=== PATIENT | female | born 1940 | race African-American/Black ===

== ENCOUNTER → 2016-06-12 | Outpatient (CLI) | payer MEDICARE, OTHER ==
[2016-05-07 12:46] VITALS: BP 127/64
[~2016-06-12] MED LIST: ASPI-482 PO; ESTR2TAB PO; EZET10TA3 PO; FERR-26 PO; LEVO112T4 PO; LOSA100T6 PO; MULT-658 PO; NAPR220T70 PO; OXYC-323 PO; OXYC1TAB7 PO; POTA10CA PO; SIMV40TA3 PO; TRIA1TAB5 PO; VERA240C2 PO; WARF2TAB7 PO
[2016-06-12 11:23] LABS: INR 1.7 (0.8-1.1); PROTHROMBIN TIME PATIENT 18.8 SEC (11.7-14.0)
== END | disposition home or self-care (01) ==
LOC: LAB 10:10
PROVIDERS: ATTEND Orthopaedic Surgery Sports Medicine
DX: Z79.01 Long term (current) use of anticoagulants (principal)
CPT/HCPCS: 36415; 85610

== ENCOUNTER → 2016-09-13 | Day surgery (SDC) | payer MEDICARE, OTHER ==
[~2016-09-13] MED LIST changes: +DILT240T3 PO; +FENTANYL PF 100 MCG/2 ML VIAL. IV PRN; +HYDROMORPHONE 2 MG/ML VIAL. IV PRN; +IV RINGERS,LACTATED 1000ML 1,000 ML IV SCH; +LIDOCAINE 1% 1 ML SYRINGE. ID PRN; +LIDOCAINE 2% PF Vial for OR 5 ML VIAL. ONE; +MORPHINE SULFATE 2 MG/ML DISP.SYRIN. IV PRN; +ONDANSETRON PF 4 MG/2 ML VIAL. IV PRN; +PROCHLORPERAZINE 10 MG/2 ML VIAL. IV PRN; +PROPOFOL 20 ML IV ONE
[2016-09-13 07:54] VITALS: BP 114/47
== END | disposition home or self-care (01) ==
LOC: ENDOS 06:02
PROVIDERS: ATTEND Internal Medicine Gastroenterology
DX: K64.0 First degree hemorrhoids (principal); K57.30 Diverticulosis of large intestine without perforation or abscess without bleeding; E78.00 Pure hypercholesterolemia, unspecified; I10 Essential (primary) hypertension; M19.90 Unspecified osteoarthritis, unspecified site; E03.9 Hypothyroidism, unspecified; Z90.710 Acquired absence of both cervix and uterus; Z90.49 Acquired absence of other specified parts of digestive tract
CPT/HCPCS: 45378; G0500; J2704

== ENCOUNTER → 2016-12-04 | Outpatient (CLI) | payer MEDICARE ==
[2016-09-13 07:54] VITALS: BP 114/47
[~2016-12-04] MED LIST changes: +EZET10TA18 PO; -EZET10TA3 PO; -FENTANYL PF 100 MCG/2 ML VIAL. IV PRN; -HYDROMORPHONE 2 MG/ML VIAL. IV PRN; -IV RINGERS,LACTATED 1000ML 1,000 ML IV SCH; -LIDOCAINE 1% 1 ML SYRINGE. ID PRN; -LIDOCAINE 2% PF Vial for OR 5 ML VIAL. ONE; -MORPHINE SULFATE 2 MG/ML DISP.SYRIN. IV PRN; -ONDANSETRON PF 4 MG/2 ML VIAL. IV PRN; -POTA10CA PO; +POTASSIUM CHLO10 MEQ PO; -PROCHLORPERAZINE 10 MG/2 ML VIAL. IV PRN; -PROPOFOL 20 ML IV ONE
--- NOTE | 2016-12-04 13:16 | RAD ---
Indication: Carotid bruit. Grayscale, color-flow and duplex Doppler evaluation of bilateral carotid systems was performed. There is mild plaque in the carotid bulbs and bifurcations extending into the proximal internal and external carotid arteries. Mild velocity elevation in the left proximal internal carotid artery is noted at 147 cm/s. Velocities on the right are unremarkable. Both vertebral arteries show antegrade flow. Peak velocity within the common carotid arteries is 107 cm/s on the right and 108 cm/s on the left. Peak ICA velocity on the right is 109 cm/s and on the left 147 cm/s. ICA to CCA ratio on the right is 1.0 and left is 1.4. Impression: Mild bilateral carotid plaque. No hemodynamically significant stenosis is detected.
== END | disposition home or self-care (01) ==
LOC: US 15:56
PROVIDERS: ATTEND Family Medicine
DX: I65.23 Occlusion and stenosis of bilateral carotid arteries (principal)
CPT/HCPCS: 93880

== ENCOUNTER → 2017-09-24 | Outpatient (CLI) | payer MEDICARE ==
[2017-09-24 11:51] LABS: ADD MAN DIFF? NO
[2017-09-24 11:52] LABS: BASO % 1 % (0-3); EOS # 0.3 x10^3/uL (0.0-0.7); EOS % 4 % (0-3); HEMATOCRIT 38.2 % (36.0-47.0); HEMOGLOBIN 12.6 g/dL (12.0-15.5); LYMPH # 1.9 x10^3/uL (1.0-4.8); LYMPH % 24 % (24-48); MEAN CORPUSCULAR HEMOGLOBIN 29 pg (25-35); MEAN CORPUSCULAR HGB CONC 33 g/dL (31-37); MEAN CORPUSCULAR VOLUME 88 fL (79-100); MONO # 0.6 x10^3/uL (0.0-1.1); MONO % 8 % (0-9); NEUT % 64 % (31-73); PLATELET COUNT 228 x10^3/uL (140-400); RED BLOOD COUNT 4.34 x10^6/uL (3.50-5.40); RED CELL DISTRIBUTION WIDTH 13.4 % (11.5-14.5); WHITE BLOOD COUNT 7.9 x10^3/uL (4.0-11.0)
[2017-09-24 12:06] LABS: ALBUMIN 3.8 g/dL (3.4-5.0); ANION GAP 8 (6-14); BLOOD UREA NITROGEN 22 mg/dL (7-20); CALCIUM 9.1 mg/dL (8.5-10.1); CARBON DIOXIDE 30 mmol/L (21-32); CHLORIDE 103 mmol/L (98-107); CREATININE 1.1 mg/dL (0.6-1.0); GFR 58.4; GLUCOSE 105 mg/dL (70-99); POTASSIUM 4.4 mmol/L (3.5-5.1); SODIUM 141 mmol/L (136-145)
== END | disposition home or self-care (01) ==
LOC: SURGPAT 10:47
DX: Z01.818 Encounter for other preprocedural examination (principal); K64.8 Other hemorrhoids
CPT/HCPCS: 36415; 80048; 82040; 85025

== ENCOUNTER 2017-09-30 08:12 | Day surgery (SDC) | payer MEDICARE ==
[~2017-09-30 08:12] MED LIST changes: -ASPI-482 PO; -DILT240T3 PO; -ESTR2TAB PO; -EZET10TA18 PO; -FERR-26 PO; -LEVO112T4 PO; +LIDOCAINE 1% PF 2 ML VIAL. ID; -LOSA100T6 PO; +MORPHINE SULFATE 4 MG/ML DISP.SYRIN. IV; -MULT-658 PO; -NAPR220T70 PO; +ONDANSETRON PF 4 MG/2 ML VIAL. IV; -OXYC-323 PO; -OXYC1TAB7 PO; -POTASSIUM CHLO10 MEQ PO; -SIMV40TA3 PO; -TRIA1TAB5 PO; -VERA240C2 PO; -WARF2TAB7 PO; +ceFAZolin 2GM PREMIX 2 GM/50 ML BAG IV; +fentaNYL PF VIAL 100 MCG/2 ML VIAL IV
[2017-09-30] MEDS ORDERED: BUPIVACAINE-EPI 0.25%-1:200000 50 ML VIAL. (09:03)
[2017-09-30] MEDS ORDERED: GELATIN SPONGE SIZE 100. (09:03)
[2017-09-30] MEDS: IV RINGERS,LACTATED 1000ML 1,000 ML IV (09:10)
[2017-09-30] MEDS ORDERED: PROPOFOL 20 ML IV (10:00)
[2017-09-30] MEDS ORDERED: LIDOCAINE 2% PF Vial for OR 5 ML VIAL. (10:00)
[2017-09-30] MEDS ORDERED: fentaNYL PF VIAL 100 MCG/2 ML VIAL ×2 (10:01→11:02)
[2017-09-30] MEDS ORDERED: ROCURONIUM 50 MG/5 ML VIAL. (10:01)
[2017-09-30] MEDS ORDERED: DEXAMETHASONE SOD PHOS 20 MG/5 ML VIAL. (10:40)
[2017-09-30] MEDS ORDERED: ONDANSETRON PF 4 MG/2 ML VIAL. (10:40)
[2017-09-30] MEDS ORDERED: GLYCOPYRROLATE 1 MG/5 ML VIAL. (10:41)
[2017-09-30] MEDS ORDERED: NEOSTIGMINE METHYLSULFATE 5 MG/5 ML SYRINGE. (10:41)
[2017-09-30] MEDS ORDERED: SEVOFLURANE 16 TO 30 MINUTES. IH (10:54)
[2017-09-30] MEDS ORDERED: PROCHLORPERAZINE 10 MG/2 ML VIAL. (11:02)
[2017-09-30] MEDS: PROCHLORPERAZINE 10 MG/2 ML VIAL. IV (11:10)
== END 2017-09-30 12:32 | disposition home or self-care (01) ==
LOC: SURG 08:12
DX: K62.3 Rectal prolapse (principal); I10 Essential (primary) hypertension; E78.5 Hyperlipidemia, unspecified; E03.9 Hypothyroidism, unspecified; M19.90 Unspecified osteoarthritis, unspecified site; Z90.710 Acquired absence of both cervix and uterus; Z90.49 Acquired absence of other specified parts of digestive tract; Z98.890 Other specified postprocedural states; Z87.891 Personal history of nicotine dependence; Z82.49 Family history of ischemic heart disease and other diseases of the circulatory system; Z80.42 Family history of malignant neoplasm of prostate; Z79.82 Long term (current) use of aspirin; Z79.899 Other long term (current) drug therapy
CPT/HCPCS: 45300; A7015; J0690; J0780; J1100; J2405; J2704; J2710; J3010; J3490

== ENCOUNTER → 2018-08-25 | Outpatient (CLI) | payer MEDICARE ==
[2017-09-30 12:10] VITALS: BP 122/58
[~2018-08-25] MED LIST changes: +ACET500T33 PO; +ASPI-482 PO; +ASPI325T11 PO; +ATOR40TA59 PO; +CHOL4POW2 PO; +CLOP75TA PO; +CYAN10005 PO; +DILT240T3 PO; +ESTR2TAB PO; +EZET10TA18 PO; +FERR325T14 PO; +LEVO112T4 PO; +LEVO75TA5 PO; +LEVO88TA4 PO; -LIDOCAINE 1% PF 2 ML VIAL. ID; +LOSA100T14 PO; +METO25TA4 PO; -MORPHINE SULFATE 4 MG/ML DISP.SYRIN. IV; +MULT-658 PO; +NAPR220T70 PO; -ONDANSETRON PF 4 MG/2 ML VIAL. IV; +OXYC1TAB15 PO; +OXYC1TAB7 PO; +POTA10TA12 PO; +PSYL0.5215 PO; +SIMV40TA3 PO; +TRIA1TAB5 PO; +VERA240C2 PO; +WARF2TAB96 PO; -ceFAZolin 2GM PREMIX 2 GM/50 ML BAG IV; -fentaNYL PF VIAL 100 MCG/2 ML VIAL IV
[2018-08-25 11:56] LABS: BASO % 1 % (0-3); EOS # 0.1 x10^3/uL (0.0-0.7); EOS % 2 % (0-3); HEMATOCRIT 37.7 % (36.0-47.0); HEMOGLOBIN 11.9 g/dL (12.0-15.5); LYMPH % 30 % (24-48); MEAN CORPUSCULAR HEMOGLOBIN 28 pg (25-35); MEAN CORPUSCULAR HGB CONC 32 g/dL (31-37); MEAN CORPUSCULAR VOLUME 89 fL (79-100); MONO # 0.6 x10^3/uL (0.0-1.1); MONO % 9 % (0-9); NEUT # 3.9 x10^3uL (1.8-7.7); NEUT % 59 % (31-73); PLATELET COUNT 210 x10^3/uL (140-400); RED BLOOD COUNT 4.21 x10^6/uL (3.50-5.40); RED CELL DISTRIBUTION WIDTH 14.3 % (11.5-14.5); WHITE BLOOD COUNT 6.6 x10^3/uL (4.0-11.0)
[2018-08-25 12:10] LABS: PROTHROMBIN TIME PATIENT 12.5 SEC (11.7-14.0)
[2018-08-25 12:32] LABS: ALBUMIN 3.5 g/dL (3.4-5.0); ALBUMIN/GLOBULIN RATIO 0.8 (1.0-1.7); CALCIUM 9.2 mg/dL (8.5-10.1); CREATININE 1.1 mg/dL (0.6-1.0); GFR 58.3; POTASSIUM 3.9 mmol/L (3.5-5.1); TOTAL BILIRUBIN 0.5 mg/dL (0.2-1.0)
== END | disposition home or self-care (01) ==
LOC: LAB 11:10
PROVIDERS: ATTEND Colon & Rectal Surgery
DX: K62.3 Rectal prolapse (principal); Z79.01 Long term (current) use of anticoagulants
CPT/HCPCS: 36415; 80053; 85025; 85610

== ENCOUNTER 2018-09-08 06:52 | Observation (INO) | payer MEDICARE ==
[~2018-09-08] VITALS: Ht 157.5 cm; Wt 96.6 kg
[2018-09-08] VITALS (20 sets, daily range): BP systolic 117–160; BP diastolic 45–63
[~2018-09-08 06:52] MED LIST changes: -ACET500T33 PO; -ASPI325T11 PO; -ATOR40TA59 PO; -CLOP75TA PO; -LEVO75TA5 PO; -METO25TA4 PO
[2018-09-08] MEDS ORDERED: LIDOCAINE 1% PF 2 ML VIAL. ONE (07:44)
[2018-09-08] MEDS ORDERED: HEPARIN for ARTERIAL LINE 1,500 ML ONE (07:44)
[2018-09-08] MEDS ORDERED: IODIXANOL 320 MG/ML 100 ML VIAL. ONE ×2 (07:44→09:07)
[2018-09-08 08:03] LABS: HEMATOCRIT 35.7 % (36.0-47.0); HEMOGLOBIN 11.7 g/dL (12.0-15.5); RED BLOOD COUNT 4.04 x10^6/uL (3.50-5.40); WHITE BLOOD COUNT 7.5 x10^3/uL (4.0-11.0)
[2018-09-08 08:04] LABS: CALCIUM 8.6 mg/dL (8.5-10.1); CREATININE 1.2 mg/dL (0.6-1.0); GFR 52.7; POTASSIUM 3.6 mmol/L (3.5-5.1)
[2018-09-08 08:12] LABS: PROTHROMBIN TIME PATIENT 12.4 SEC (11.7-14.0)
[2018-09-08] MEDS ORDERED: LIDOCAINE 1% Multi-Dose 20 ML VIAL. ONE (08:31)
[2018-09-08] MEDS ORDERED: MIDAZOLAM HCL/PF 2 MG/2 ML VIAL. ONE (08:37)
[2018-09-08] MEDS ORDERED: fentaNYL PF VIAL 100 MCG/2 ML VIAL ONE (08:37)
[2018-09-08] MEDS ORDERED: HEPARIN for IV BOLUS 10,000 UNIT/10 ML VIAL. ONE (09:05)
[2018-09-08] MEDS ORDERED: LIDOCAINE 1% Multi-Dose 20 ML VIAL. INJ ONE (09:15)
[2018-09-08] MEDS ORDERED: fentaNYL PF VIAL 100 MCG/2 ML VIAL IV ONE (09:15)
[2018-09-08] MEDS ORDERED: MIDAZOLAM HCL/PF 2 MG/2 ML VIAL. IV ONE (09:15)
[2018-09-08] MEDS ORDERED: BIVALIRUDIN 250 MG VIAL. IV ONE ×2 (09:15→09:45)
[2018-09-08] MEDS ORDERED: IODIXANOL 320 MG/ML 100 ML VIAL. IART ONE (09:15)
[2018-09-08] MEDS ORDERED: HEPARIN for IV BOLUS 10,000 UNIT/10 ML VIAL. IV ONE (09:15)
[2018-09-08] MEDS ORDERED: CONTRAST GIVEN. MC PRN (09:15)
[2018-09-08] MEDS ORDERED: ASPIRIN 325 MG TABLET PO ONE (09:45)
[2018-09-08] MEDS ORDERED: CLOPIDOGREL BISULFATE 75 MG TABLET PO ONE (09:45)
--- NOTE | 2018-09-08 10:03 | PDOC ---
MODERATE SEDATION ASSESSMENT RISKS/ALTERNATIVES Risks/Alternatives Risks and alternatives of this type of sedation and procedure discussed with: RISK/ALTERNATIVES: Patient H & P ON CHART H & P H & P on chart and reviewed for co-morbid conditions and appropriate labs. H&P ON CHART: Yes STATUS PREG STATUS ASSESSED: N/A MEDS/ALLERGIES REVIEWED Meds/Allergies Reviewed Medications and Allergies including time and route of recently administered narcotics and sedatives. MEDS/ALLERGIES REVIEWED: Yes ASA RATING ASA RATING: III AIRWAY ASSESSMENT Airway Assessment Airway patency, oral function limitations, presence of caps, crowns, dentures, partials, and ability to extend neck assessed. AIRWAY ASSESSMENT: Yes MALLAMPATI SCORE MALLAMPATI SCORE: II PRE-SEDATION ASSESSMENT PRE-SEDATION ASSESSMENT: Yes RG CSHAFER MD Sep 08, 2018 10:03
[2018-09-08] MEDS ORDERED: NITROGLYCERIN SUBLINGUAL 0.4 MG BOTTLE OF 25. SL PRN (10:15)
[2018-09-08] MEDS ORDERED: ACETAMINOPHEN 325 MG TABLET. PO PRN (10:15)
--- NOTE | 2018-09-08 10:39 | CARD ---
MR#: [id number] Date of Study: 09/08/2018 Ordering Physician: RG KIMBALL, Referring Physician: RG KIMBALL Tech: RT Brianna (R) APPROVED REPORT Technologist: RT Brianna (R) Nurse: Abeba Murillo RN Procedure(s) performed: 1. Left heart catheterization, selective coronary angiography and left ventr iculography 2. Successful PCI/stents placement to the right coronary artery 3. Instant wave free ratio (IFR) measurement to Left main coronary artery Sedation Time: 75 Minutes Dose 139 Gycm2 FT: 21.4 Minutes Contrast: 226 Visi 320 INDICATION The indication(s) include : Preoperative evaluation, dyspnea on exertion and abnormal stress test. Heart Failure Heart Failure: No CASE TECHNIQUE During this case, Fluoroscopy and low osmolar contrast were used for imaging. PROCEDURE NARRATIVE After explaining the risks, benefits and alternative options, informed consent was obtained from rosalba ent. Patient was brought to the [facility] and her right groin was prepped and draped in the usu al fashion. 20 mL of 2% lidocaine was infiltrated into the skin and subcutaneous tissues for local an esthesia. Since patient had difficulty with IV access for administration of medications, venous acces s was obtained in the right common femoral vein and 5 Indonesian sheath was inserted. Arterial access was obtained in the right common femoral artery and a 6 Indonesian sheath was inserted. 6 Indonesian JL4 and 6 F rench JR4 catheters placed to perform selective angiography of the left and right coronary arteries. 6 Indonesian pigtail catheter was used to perform left ventriculography. Since patient was found to have angiographically borderline significant stenosis involving the ostium of left main coronary artery, a decision was made to perform Instant wave free ratio (IFR) measurement to assess the physiologic sig nificance. The lesion was crossed with a Therative verrata PressureWire and IFR measurement was made th at came back significant at 0.96. FINDINGS 1. Hemodynamics: Left ventricle end-diastolic pressure 17 mm Hg. No pullback gradient across the ao rtic valve. 2. Left ventriculography: Normal left ventricle systolic function with ejection fraction estimated at 65-70%. No significant mitral regurgitation seen. 3. Coronary angiography: a. The left main coronary artery arose from the left sinus of Valsalva, gave rise to the left anteri or descending and left circumflex arteries and showed 30-40% stenosis involving the ostium that was p hysiologically insignificant based on IFR measurement of 0.96. Also, there was no dampening of pressu re waveform with engaging the vessel. b. The left anterior descending artery showed 30% stenosis in the midsegment. c. The left circumflex artery did not show any significant stenosis. d. The right coronary artery was a dominant vessel arising from the right sinus of Valsalva that svetlana wed 90% stenosis in the proximal segment, 70% stenosis in the proximal to midsegment and another 90% calcified stenosis in the midsegment. INTERVENTION The right coronary artery was engaged with 6 Indonesian JR4 guide catheter and the stenoses described abo ve were crossed with a 0.014 inch [employer] water guidewire. The proximal and proximal to midsegment lesions were dilated with a 2.5 x 12 mm trek balloon. Attempts to advance this into the midsegment we re unsuccessful due to calcification. This was then dilated with a 2.5 x 8 mm trek balloon. Subsequen tly, all the lesions were treated with overlapping 3.0 x 18 mm, 3.0 x 28 mm and 3.5 x 12 mm MultiLink vision stents. Follow-up angiography showed resolution of the stenosis to 0% with CAT-3 distal flow . Patient tolerated the procedure well. Hemostasis in the right groin was achieved using mynx closure device. There were no immediate complications. Conclusion 1. Severe single-vessel coronary artery disease involving the right coronary artery. Also seen was 3 0-40% stenosis involving the left main coronary artery that was physiologically insignificant based o n IFR measurement of 0.96. 2. Successful PCI/bare metal stents placement to the right coronary artery (BMS were used since rosalba ent is contemplating rectal prolapse surgery soon) 3. Normal left ventricle systolic function with ejection fraction estimated at 65-70%. Recommendations 1. Aspirin 325 mg daily for one month followed by 81 mg daily 2. Plavix 75 mg daily for at least 2-4 weeks and preferably one year 3. Cardiovascular risk factor modification 4. Patient can proceed with her surgery and her Plavix can be held after 2-4 weeks of DAPT. Signed by : Rg Kimball, Electronically Approved : 09/08/2018 10:38:29
[2018-09-08] MEDS: METOPROLOL TART IMMED RELEASE 25 MG TABLET. PO SCH ×2 (11:00→20:27)
[2018-09-08] MEDS: LOSARTAN POTASSIUM 50 MG TABLET. PO SCH (11:00)
[2018-09-08] MEDS: CLOPIDOGREL BISULFATE 75 MG TABLET PO SCH (11:47)
[2018-09-08] MEDS: IV 1/2 NORMAL SALINE 1,000 ML IV SCH ×2 (11:47→18:04)
[2018-09-08] MEDS: ASPIRIN ENTERIC COATED 325 MG TABLET.DR. PO SCH (11:47)
[2018-09-08] MEDS: LEVOTHYROXINE 88 MCG TABLET PO SCH (11:47)
[2018-09-08] MEDS ORDERED: ATOR40TA59 PO (12:13)
[2018-09-08] MEDS ORDERED: ACET500T33 PO (12:13)
[2018-09-08] MEDS ORDERED: LEVO75TA5 PO (12:13)
--- NOTE | 2018-09-08 13:17 | NUR ---
SS following for discharge planning. SS reviewed pt chart. Pt is from home with spouse and is currently on room air. Pt receiving heart cath today. No discharge needs noted at this time. SS will continue to follow for pending discharge needs.
[2018-09-08] MEDS ORDERED: EZETIMIBE 10 MG TABLET. PO SCH (21:00)
[2018-09-08] MEDS ORDERED: SIMVASTATIN 40 MG TABLET. PO SCH (21:00)
[2018-09-09] MEDS: IV 1/2 NORMAL SALINE 1,000 ML IV SCH ×2 (02:04→10:04)
[2018-09-09 02:35] VITALS: BP 137/49
[2018-09-09] MEDS: LEVOTHYROXINE 88 MCG TABLET PO SCH (05:21)
[2018-09-09 07:00] VITALS: BP 111/45
[2018-09-09] MEDS: METOPROLOL TART IMMED RELEASE 25 MG TABLET. PO SCH (08:19)
[2018-09-09 08:20] VITALS: BP 111/45
[2018-09-09] MEDS: ASPIRIN ENTERIC COATED 325 MG TABLET.DR. PO SCH (08:20)
[2018-09-09] MEDS: LOSARTAN POTASSIUM 50 MG TABLET. PO SCH (08:20)
[2018-09-09] MEDS: CLOPIDOGREL BISULFATE 75 MG TABLET PO SCH (08:20)
--- NOTE | 2018-09-09 10:41 | PDOC3 ---
SUPA RAMSEY RING SORTER 09/09/18 1041: Discharge Summary Visit Information Date of Admission: Sep 08, 2018 Date of Discharge: Sep 09, 2018 Admitting Diagnosis: CAD, abnormal stress test Final Diagnosis CAD, S/P PCI/BMS to RCA Brief Hospital Course Allergies Allergies Coded Allergies Type Severity Reaction Last Updated Verified No Known Drug Allergies 09/13/16 No Vital Signs Vital Signs Date Time Temp Pulse Resp B/P (MAP) Pulse Ox O2 Delivery O2 Flow Rate FiO2 09/09/18 08:20 63 111/45 09/09/18 08:00 Room Air 09/09/18 07:00 98.2 15 96 98.2 09/08/18 10:32 2.0 Lab Results Laboratory Tests Test 09/08/18 07:45 White Blood Count 7.5 x10^3/uL (4.0-11.0) Red Blood Count 4.04 x10^6/uL (3.50-5.40) Hemoglobin 11.7 g/dL (12.0-15.5) Hematocrit 35.7 % (36.0-47.0) Mean Corpuscular Volume 88 fL (79-100) Mean Corpuscular Hemoglobin 29 pg (25-35) Mean Corpuscular Hemoglobin Concent 33 g/dL (31-37) Red Cell Distribution Width 14.0 % (11.5-14.5) Platelet Count 218 x10^3/uL (140-400) Prothrombin Time 12.4 SEC (11.7-14.0) Prothromb Time International Ratio 1.0 (0.8-1.1) Sodium Level 142 mmol/L (136-145) Potassium Level 3.6 mmol/L (3.5-5.1) Chloride Level 104 mmol/L (98-107) Carbon Dioxide Level 28 mmol/L (21-32) Anion Gap 10 (6-14) Blood Urea Nitrogen 22 mg/dL (7-20) Creatinine 1.2 mg/dL (0.6-1.0) Estimated GFR (Cockcroft-Gault) 52.7 Glucose Level 103 mg/dL (70-99) Calcium Level 8.6 mg/dL (8.5-10.1) Brief Hospital Course Ms. Buckley is a 78 yo female admitted for planned [facility] due to abnormal stress test and CHRISTENSEN. She had a successful PCI/BMS to RCA and BMS utilized for pending rectal prolapse operation which she is going to wait for about a month before considering it. EF is 65-70% and LM showed 30-40% lesion which was physiologically insignificant based on IFR measurement of 0.96. Right groin arteriotomy site is intact, no erythema, swelling, neurovascular status to bilateral LE intact. VSS, no rhythm ectopies. Discussed about changes in her DAPT as well as switching CCB to BB per CAD guidelines. No CP, SOA and ambulatory without difficulty. Continue with secondary prevention measures and post [facility] instructions. Follow up in office in 4 weeks. Encouraged cardiac rehab. Discharge Information Condition at Discharge: Stable Follow Up: Weeks (4) Disposition/Orders: D/C to Home Scheduled Aspirin (Aspirin Ec) 325 Mg Tablet.dr, 1 TAB PO DAILY for CAD, #30 Ref 5 Prescribed by: SUPA RAMSEY on 09/09/18 1043 Atorvastatin Calcium (Atorvastatin Calcium) 40 Mg Tablet, 40 MG PO HS for FOR CHOLESTEROL, #30 Ref 0 (Reported) Entered as Reported by: AKUA FANG on 09/08/181212 Last Action: New Order on 09/08/181212 by AKUA FANG Clopidogrel Bisulfate (Clopidogrel) 75 Mg Tablet, 75 MG PO DAILYWBKFT for CAD for 30 Days, #30 Ref 5 Prescribed by: SUPA RAMSEY on 09/09/18 1042 Cyanocobalamin (Vitamin B-12) (Vitamin B-12) 1,000 Mcg Tablet, 1 TAB PO DAILY, # 30 Ref 2 (Reported) Entered as Reported by: XIOMY PHELPS on 09/24/17 1118 Last Taken: Unknown Dose on 09/07/18 Last Action: Reviewed on 09/08/181212 by AKUA FANG Ezetimibe (Zetia) 10 Mg Tablet, 10 MG PO HS for cholesterol, (Reported) Entered as Reported by: ANTHONY XIONG on 09/15/14 1043 Last Taken: Unknown Dose on 09/07/18 Last Action: Reviewed on 09/08/181212 by AKUA FANG Levothyroxine Sodium (Levothyroxine Sodium) 75 Mcg Tablet, 75 MCG PO DAILYAC for THYROID SUPPLEMENT, #30 Ref 0 (Reported) Entered as Reported by: AKUA FANG on 09/08/181212 Last Action: New Order on 09/08/181212 by AKUA FANG Losartan Potassium (Losartan Potassium) 100 Mg Tablet, 100 MG PO DAILY for blood pressure, (Reported) Entered as Reported by: ANTHONY XIONG on 09/15/14 1043 Last Taken: Unknown Dose on 09/08/18 Last Action: Reviewed on 09/08/181212 by AKUA FANG Metoprolol Tartrate (Metoprolol Tartrate) 25 Mg Tablet, 25 MG PO BID for BP, # 60 Ref 0 (Reported) Entered as Reported by: YASMANI WALKER RN on 09/09/18 1131 Triamterene/Hydrochlorothiazid (Triamterene-Hctz 75-50 Mg Tab) 1 Each Tablet, 1 TAB PO QMWF for blood pressure/water pill, #30 Ref 5 (Reported) Entered as Reported by: TOVA CARDONA on 04/06/15 1632 Last Taken: Unknown Dose on 09/07/18 Last Action: Edited on 09/08/181212 by AKUA FANG Scheduled PRN Acetaminophen (Tylenol Extra Strength) 500 Mg Tablet, 500 MG PO PRN PRN for PAIN , (Reported) Entered as Reported by: AKUA FANG on 09/08/181212 Last Action: New Order on 09/08/181212 by AKUA FANG Psyllium Husk (Metamucil) 0.52 Gm Capsule, 5 CAP PO QIDPRN PRN for CONSTIPATION, (Reported) Entered as Reported by: XIOMY PHELPS on 09/24/17 1119 Last Taken: Unknown Dose on 09/07/18 Last Action: Reviewed on 09/08/181212 by AKUA FANG Discontinued Medications Aspirin (Aspir 81) 81 Mg Tablet.dr, 1 TAB PO DAILY, #30 Ref 5 (Reported) Entered as Reported by: XIOMY PHELPS on 09/24/17 1142 Last Taken: Unknown Dose on 09/07/18 Last Action: Reviewed on 09/08/181212 by AKUA FANG Patient Instructions Patient Instructions GENERAL INSTRUCTIONS: 1. Your dressing should be removed prior to leaving the hospital. 2. It is OK to shower the day after your procedure. 3. If you received stents, be sure to carry your stent information card with you in your wallet/purse at all times. 4. Call the office immediately at [phone] if you notice any fever or if there is redness, worsening tenderness/pain, increased bruising, or drainage from the puncture site. 5. Should you have bleeding from the site, lie down immediately & put pressure on the site. The pressure should be hard enough to stop the bleeding. Have the nearest person call 911. DO NOT try to drive to the ER with active bleeding. 6. If you notice a change in color, coolness to touch, or loss of feeling in the affected extremity, come to the emergency room. Please have someone drive you or call 911 if no one is available. DO NOT drive yourself. 7. If you normally take glucophage (metformin), please do not take this medicine for 48 hours following your procedure. 8. DO NOT STOP TAKING YOUR PLAVIX OR ASPIRIN UNLESS IT IS CLEARED BY A SOCIAL SERVICES MANAGER OF YOUR [employer] SET UP TECHNICIAN AT OUR OFFICE. 9. QUIT SMOKING: the [place] [employer] Association, [place] [employer], & [place] [employer] have cessation resources available on their websites 10. Please have someone available to drive you home from the hospital as you may be limited by sedation medications given during the procedure. Femoral (Groin) access: 1. Do no lifting, pushing, pulling, bending, stooping, or recurrent stair climbing for 3 days following your procedure. 2. Once past the first 3 days, do not do any HEAVY exertion or lifting for one week following the procedure. No gym workouts, running, lifting greater than a gallon of milk, etc 3. Do not submerge in bath or pool for one week. Call the office at [phone] for any questions or concerns. RG SCHAFER MD 09/09/18 4706: Discharge Summary Brief Hospital Course Brief Hospital Course Patient seen and examined. Agree with ENTERTAINMENT MANAGER's assessment and plan. Patient underwent successful PCI/BMS to RCA yesterday. She is currently chest pain- free. Telemetry without any significant arrhythmias. Continue current medications including dual antiplatelet therapy. She is cleared for rectal prolapse surgery from cardiac standpoint in 4 weeks. SUPA RAMSEY APRN Sep 09, 2018 10:41 RG SCHAFER MD Sep 09, 2018 16:56
[2018-09-09] MEDS ORDERED: CLOP75TA PO (10:42)
[2018-09-09] MEDS ORDERED: ASPI325T11 PO (10:43)
[2018-09-09] MEDS ORDERED: METO25TA4 PO (11:31)
--- NOTE | 2018-09-09 12:56 | NUR ---
Discharge Note: CHAKA CEE Discharge instructions and discharge home medications reviewed with Patient and a copy given. All questions have been answered and understanding verbalized. Pt sent with prescriptions, post cardiac cath instructions, and discharge instructions. Follow up appointments discussed and pt verbalized understanding. Daughter and at bedside. Pt DC'd via wheelchair to private vehicle by staff.
== END 2018-09-09 12:45 | disposition home or self-care (01) ==
LOC: CCL 06:52 → 2 NORTH 09:38 → INTOOBSV 09:38
PROVIDERS: ADMIT Internal Medicine Cardiovascular Disease; ATTEND Internal Medicine Cardiovascular Disease
DX: I25.10 Atherosclerotic heart disease of native coronary artery without angina pectoris (principal); Z79.899 Other long term (current) drug therapy
CPT/HCPCS: 36415; 80048; 85027; 85610; 92928; 93458; 93571; 96374; 96375; C1713; C1725; C1769; C1876; C1887; C1892; G0269; G0378; G0379; J0583; J1644; J2250; J3010; Q9967; 99152; 99153

== ENCOUNTER → 2019-09-23 | Outpatient (CLI) | payer MEDICARE ==
[~2019-09-23] MED LIST changes: +ACET500T33 PO; +ASPI325T11 PO; +ATOR40TA59 PO; +CLOP75TA PO; +CYAN-25 PO; -CYAN10005 PO; -EZET10TA18 PO; +EZET10TA20 PO; +LEVO75TA5 PO; +METO25TA4 PO; +SIMV40TA18 PO; -SIMV40TA3 PO
--- NOTE | 2019-09-23 11:26 | KCIC ---
EXAM: Lumbar spine, 5 views. HISTORY: Radiculopathy. COMPARISON: None. FINDINGS: 5 views of the lumbar spine are obtained. There is minimal grade 1 listhesis of L4 and L5. There is no fracture. The vertebral bodies are normal in height. There is minimal endplate remodeling and slight disc space narrowing at L3-L4. There is facet arthropathy at the mid lower lumbar levels. There are incidental calcifications and clips. There is a suspected small calcification overlying the left upper quadrant which is likely vascular rather than due to nephrolithiasis. IMPRESSION: 1. Multilevel facet arthropathy the lumbar spine, primarily at the lower lumbar levels. 2. No acute osseous finding. 3. Minimal grade 1 anterolisthesis of L4 and L5 and disc space narrowing at L3-L4. Electronically signed by: Sunitha Tena MD (09/23/2019 11:23 AM) [facility]
== END | disposition home or self-care (01) ==
LOC: KCIC 10:32
PROVIDERS: ATTEND Family Medicine
DX: M47.26 Other spondylosis with radiculopathy, lumbar region (principal); M48.061 Spinal stenosis, lumbar region without neurogenic claudication
CPT/HCPCS: 72110

== ENCOUNTER → 2019-10-11 | Outpatient (CLI) | payer MEDICARE ==
[~2019-10-11] MED LIST changes: -LEVO112T4 PO; +LEVO112T49 PO; +REGADENOSON 0.4 MG/5 ML DISP.SYRIN. IV ONE
--- NOTE | 2019-10-12 11:21 | CARD ---
MR#: [id number] Date of Study: 10/12/2019 Ordering Physician: RG SCHAFER, Referring Physician: RG SCHAFER Tech: Kelsey Gonzalez RDCS APPROVED REPORT EXAM: Two-dimensional and M-mode echocardiogram with Doppler and color Doppler. Other Information Quality : Fair INDICATION Cardiac Disease: CAD 2D DIMENSIONS RVDd2.2 (2.9-3.5cm)Left Atrium(2D)2.8 (1.6-4.0cm) IVSd1.5 (0.7-1.1cm)Aortic Root(2D)2.9 (2.0-3.7cm) LVDd4.3 (3.9-5.9cm)LVOT Diameter2.0 (1.8-2.4cm) PWd1.3 (0.7-1.1cm)LVDs3.0 (2.5-4.0cm) FS (%) 30.1 %SV48.0 ml LVEF(%)57.7 (>50%) Aortic Valve AoV Peak Amanuel.157.2cm/sAoV VTI36.3cm AO Peak GR.9.9mmHgLVOT Peak Amanuel.93.1cm/s AO Mean GR.5mmHgAVA (VMAX)1.85cm2 SAMIA (VTI)2.74lc7EK P 1/2 Xdnb053da Mitral Valve MV E Vpdmhbsh84.7cm/sMV DECEL LWTF270eq MV A Pmweciyt603.6cm/sE/A Ratio0.7 Tricuspid Valve TR P. Rbxawsbs993ku/sRAP KBZDTTID1hxLz TR Peak Gr.81reUcHISZ70owQb Pulmonary Vein S1 Iirqaqdo83.5cm/sD2 Yeclxggb10.8cm/s LEFT VENTRICLE The left ventricle is normal size. There is mild concentric left ventricular hypertrophy. The left ve ntricular systolic function is normal. The Ejection Fraction is 55-60%. There is normal LV segmental wall motion. Transmitral Doppler flow pattern is Grade I-abnormal relaxation pattern. RIGHT VENTRICLE The right ventricle is normal size. The right ventricular systolic function is normal. ATRIA The left atrium size is normal. The right atrium size is normal. The interatrial septum is intact wit h no evidence for an atrial septal defect or patent foramen ovale as noted on 2-D or Doppler imaging. AORTIC VALVE The aortic valve is calcified but opens well. Doppler and Color Flow revealed trace aortic regurgitat ion. There is no significant aortic valvular stenosis. MITRAL VALVE The mitral valve is normal in structure and function. Posterior mitral annular calcification is mild. There is no evidence of mitral valve prolapse. There is no mitral valve stenosis. Doppler and Color- flow revealed mild mitral regurgitation. TRICUSPID VALVE The tricuspid valve is normal in structure and function. Doppler and Color Flow revealed trace tricus pid regurgitation. The PA pressure was estimated at 19 mmHg. There is no tricuspid valve stenosis. PULMONIC VALVE The pulmonic valve is not well visualized. Doppler and Color Flow revealed no pulmonic valvular regur gitation. There is no pulmonic valvular stenosis. GREAT VESSELS The aortic root is normal in size. The ascending aorta is normal in size. The IVC is normal in size a nd collapses >50% with inspiration. PERICARDIAL EFFUSION There is no evidence of significant pericardial effusion. Critical Notification Critical Value: No <Conclusion> The left ventricular systolic function is normal. The Ejection Fraction is 55-60%. There is normal LV segmental wall motion. Transmitral Doppler flow pattern is Grade I-abnormal relaxation pattern. Trace aortic regurgitation. Mild mitral regurgitation. Trace tricuspid regurgitation. The PA pressure was estimated at 19 mmHg. There is no evidence of significant pericardial effusion. Signed by : Rg Schafer, Electronically Approved : 10/12/2019 11:20:21
--- NOTE | 2019-10-12 11:34 | RAD ---
MR#: [id number] Date of Study: 10/11/2019 Ordering Physician: RG SCHAFER Referring Physician: CHAZ OVALLES Tech: RT Grisel Gonzalez) (N) APPROVED REPORT Test Type: Pharmacological Stress Nurse/Tech: RT Carlos (Daphnie) (N) Test Indications: coronary artery disease Cardiac History: 2018 Medications: see EHR Medical History: see EHR Resting ECG: sinus rhythm Resting Heart Rate: 58 bpm Resting Blood Pressure: 172/62mmHg Pretest Chest Pain: None Nurse/Tech Notes Consent: The procedure was explained to the patient in lay terms. Informed consent was witnessed. Raphael eout was entered into [place]. History and Stress Test performed by RT Grisel Gonzalez) (N) Pharm. Details Pharmacologic stress testing was performed using 0.4mg per 5ml of regadenoson given intravenously ove r 7-10 seconds. POST EXERCISE Reason for Termination: Infusion complete Target HR: No Max HR: 92 bpm Max Blood Pressure: 152/56mmHg Chest Pain: No. INTERPRETATION Stress EKG Conclusion: No significant acute EKG changes Imaging Protocol IMAGE PROTOCOL: Rest Tc-99m/stress Tc-99m 2 days Rest: Stress: Viability: Radiopharm.Tc99m GmqrkuusgZy27i Sestamibi Dose32.3mCi 33mCi Duration 15min. 15min. Img Date 10/11/2019 10/12/2019 Inj-Img Lteo77hwo. 60min. Rest Admin Site:IV - Left AntecubitalAdministrator:RT Carlos (Daphnie)(N) Stress Admin Site: IV - Left AntecubitalAdministrator: RT Grisel Gonzalez)(N) STRESS DATA End Diast. Vol.123.0mlAv. Heart Rate64.0bpm End Syst. Vol.52.0mlCO Index BSA0.0L/min Myocardial Nacb788.0gEject. Vxyvqvrc95.0% Stress Rates Pk. Fill Rate2.04EDV/secLVtime Pk. Fill 164.45msec Pk. Empty Rate2.37ESV/secLVtime Pk. Egfuo622.20msec 1/3 Pk. Fill1.06EDV/sec Stress Scores Regional WT2.00Summed WT2.00 Regional WM0.00Summed WM6.00 The rest and stress images show normal perfusion, normal contraction and thickening. LV Perfusion There is a mild anteriorl/lateral wall perfusion defect that is fully reversible suggestive of impair ed perfusion reserved in the LAD territory. No prior infarct noted. Wall Motion Mild LV dysfunction. EF 50% LV Perfusion 3 TCD/TID: Yes LV Perf. Quant 17 Seg. SSS11.00 17 Seg. SRS0.00 17 Seg. SDS11.00 Stress Defect Extent (% LAD)0.00Rest Defect Extent (% LAD)0.00Rev. Defect Extent (% LAD)0.00 Stress Defect Extent (% LCX) 66.30Rest Defect Extent (% LCX)10.00Rev. Defect Extent (% LCX)47.50 Stress Defect Extent (% RCA)0.00Rest Defect Extent (% RCA)0.00Rev. Defect Extent (% RCA)0.00 Stress Defect Extent (% ELODIA)13.50Rest Defect Extent (% ELODIA)1.70Rev. Defect Extent (% ELODIA)10.20 Other Information Quality:Average Risk Assessment: Moderate Risk Conclusion 1. No evidence of stress induced EKG changes. 2. Mild reversible anterior/lateral wall perfusion defect. 3. Mild LV dysfunction. EF 50%. 4. Mild TID at 1.3 5. Moderate risk study. Signed by : Kenneth Bray, Electronically Approved : 10/12/2019 11:34:05
== END | disposition home or self-care (01) ==
LOC: NM 09:31
PROVIDERS: ATTEND Internal Medicine Cardiovascular Disease
DX: I25.10 Atherosclerotic heart disease of native coronary artery without angina pectoris (principal)
CPT/HCPCS: 78452; A9500; 93017; 93306; J2785

== ENCOUNTER → 2019-10-12 | Outpatient (CLI) | payer MEDICARE ==
[~2019-10-12] MED LIST changes: -REGADENOSON 0.4 MG/5 ML DISP.SYRIN. IV ONE
--- NOTE | 2019-10-13 15:50 | CARD ---
EXAM: Two-dimensional and M-mode echocardiogram with Doppler and color Doppler. Other Information Quality : Fair INDICATION Cardiac Disease: CAD 2D DIMENSIONS RVDd 2.2 (2.9-3.5cm) Left Atrium(2D) 2.8 (1.6-4.0cm) IVSd 1.5 (0.7-1.1cm) Aortic Root(2D) 2.9 (2.0-3.7cm) LVDd 4.3 (3.9-5.9cm) LVOT Diameter 2.0 (1.8-2.4cm) PWd 1.3 (0.7-1.1cm) LVDs 3.0 (2.5-4.0cm) FS (%) 30.1 % SV 48.0 ml LVEF(%) 57.7 (>50%) Aortic Valve AoV Peak Amanuel. 157.2cm/s AoV VTI 36.3cm AO Peak GR. 9.9mmHg LVOT Peak Amanuel. 93.1cm/s AO Mean GR. 5mmHg SAMIA (VMAX) 1.85cm2 SAMIA (VTI) 2.10cm2 AI P 1/2 Time 886ms Mitral Valve MV E Velocity 91.7cm/s MV DECEL TIME 165ms MV A Velocity 138.6cm/s E/A Ratio 0.7 Tricuspid Valve TR P. Velocity 199cm/s RAP ESTIMATE 3mmHg TR Peak Gr. 16mmHg RVSP 19mmHg Pulmonary Vein S1 Velocity 76.5cm/s D2 Velocity 36.8cm/s LEFT VENTRICLE The left ventricle is normal size. There is mild concentric left ventricular hypertrophy. The left ventricular systolic function is normal. The Ejection Fraction is 55-60%. There is normal LV segmental wall motion. Transmitral Doppler flow pattern is Grade I-abnormal relaxation pattern. RIGHT VENTRICLE The right ventricle is normal size. The right ventricular systolic function is normal. ATRIA The left atrium size is normal. The right atrium size is normal. The interatrial septum is intact with no evidence for an atrial septal defect or patent foramen ovale as noted on 2-D or Doppler imaging. AORTIC VALVE The aortic valve is calcified but opens well. Doppler and Color Flow revealed trace aortic regurgitation. There is no significant aortic valvular stenosis. MITRAL VALVE The mitral valve is normal in structure and function. Posterior mitral annular calcification is mild. There is no evidence of mitral valve prolapse. There is no mitral valve stenosis. Doppler and Color-flow revealed mild mitral regurgitation. TRICUSPID VALVE The tricuspid valve is normal in structure and function. Doppler and Color Flow revealed trace tricuspid regurgitation. The PA pressure was estimated at 19 mmHg. There is no tricuspid valve stenosis. PULMONIC VALVE The pulmonic valve is not well visualized. Doppler and Color Flow revealed no pulmonic valvular regurgitation. There is no pulmonic valvular stenosis. GREAT VESSELS The aortic root is normal in size. The ascending aorta is normal in size. The IVC is normal in size and collapses >50% with inspiration. PERICARDIAL EFFUSION There is no evidence of significant pericardial effusion. Critical Notification Critical Value: No <Conclusion> The left ventricular systolic function is normal. The Ejection Fraction is 55-60%. There is normal LV segmental wall motion. Transmitral Doppler flow pattern is Grade I-abnormal relaxation pattern. Trace aortic regurgitation. Mild mitral regurgitation. Trace tricuspid regurgitation. The PA pressure was estimated at 19 mmHg. There is no evidence of significant pericardial effusion. Signed by : Sotero Kimball, Electronically Approved : 10/12/2019 11:20:21 CHRIS
== END | disposition home or self-care (01) ==
LOC: ECHO 08:48
PROVIDERS: ATTEND Internal Medicine Cardiovascular Disease
DX: I08.0 Rheumatic disorders of both mitral and aortic valves (principal); I25.10 Atherosclerotic heart disease of native coronary artery without angina pectoris
CPT/HCPCS: 93306

== ENCOUNTER → 2019-10-28 | Outpatient (CLI) | payer MEDICARE ==
[~2019-10-28] MED LIST changes: +ASPI-630 PO
== END | disposition home or self-care (01) ==
LOC: LAB 13:46
PROVIDERS: ATTEND Internal Medicine Cardiovascular Disease
DX: Z01.818 Encounter for other preprocedural examination (principal); Z11.59 Encounter for screening for other viral diseases; I25.10 Atherosclerotic heart disease of native coronary artery without angina pectoris; R94.39 Abnormal result of other cardiovascular function study
CPT/HCPCS: C9803; U0003; 36415

== ENCOUNTER 2019-11-02 08:11 | Observation (INO) | payer MEDICARE ==
[~2019-11-02] VITALS: Ht 157.5 cm; Wt 93.6 kg
[2019-11-02] VITALS (15 sets, daily range): BP systolic 117–217; BP diastolic 50–123
[~2019-11-02 08:11] MED LIST changes: -ASPI-630 PO
[2019-11-02] MEDS ORDERED: ASPI-630 PO (08:30)
[2019-11-02 08:46] LABS: HEMATOCRIT 40.7 % (36.0-47.0); HEMOGLOBIN 13.1 g/dL (12.0-15.5); RED BLOOD COUNT 4.58 x10^6/uL (3.50-5.40); RED CELL DISTRIBUTION WIDTH 14.7 % (11.5-14.5); WHITE BLOOD COUNT 9.4 x10^3/uL (4.0-11.0)
[2019-11-02 08:51] LABS: PROTHROMBIN TIME PATIENT 11.7 SEC (11.7-14.0)
[2019-11-02 08:56] LABS: CREATININE 1.1 mg/dL (0.6-1.0); GFR 58.1
[2019-11-02] MEDS ORDERED: LIDOCAINE 1% PF 2 ML VIAL. ONE (09:29)
[2019-11-02] MEDS ORDERED: IODIXANOL 320 MG/ML 100 ML VIAL. ONE ×2 (09:29→10:50)
[2019-11-02] MEDS ORDERED: HEPARIN for IV BOLUS 10,000 UNIT/10 ML VIAL. ONE (10:04)
[2019-11-02] MEDS ORDERED: fentaNYL PF VIAL 100 MCG/2 ML VIAL ONE ×2 (10:04→11:08)
[2019-11-02] MEDS ORDERED: VERAPAMIL 5 MG/2 ML VIAL. ONE (10:04)
[2019-11-02] MEDS ORDERED: NITROGLYCERIN 200 MCG/2 ML SYRINGE FOR CATH/VASC LAB. ONE (10:04)
[2019-11-02] MEDS ORDERED: MIDAZOLAM HCL/PF 2 MG/2 ML VIAL. ONE ×2 (10:04→11:07)
[2019-11-02] MEDS ORDERED: BIVALIRUDIN 250 MG VIAL. IV ONE ×2 (10:42→11:00)
[2019-11-02] MEDS: IV 1/2 NORMAL SALINE 1,000 ML IV SCH (10:47)
[2019-11-02] MEDS ORDERED: HEPARIN for IV BOLUS 10,000 UNIT/10 ML VIAL. IART ONE (11:00)
[2019-11-02] MEDS ORDERED: NITROGLYCERIN 200 MCG/2 ML SYRINGE FOR CATH/VASC LAB. IART ONE (11:00)
[2019-11-02] MEDS ORDERED: IODIXANOL 320 MG/ML 100 ML VIAL. IART ONE (11:00)
[2019-11-02] MEDS ORDERED: MIDAZOLAM HCL/PF 2 MG/2 ML VIAL. IV ONE (11:00)
[2019-11-02] MEDS ORDERED: fentaNYL PF VIAL 100 MCG/2 ML VIAL IV ONE (11:00)
[2019-11-02] MEDS ORDERED: LIDOCAINE 1% PF 2 ML VIAL. INJ ONE (11:00)
[2019-11-02] MEDS ORDERED: VERAPAMIL 5 MG/2 ML VIAL. IART ONE (11:00)
[2019-11-02] MEDS ORDERED: ASPIRIN CHEWABLE 81 MG TABLET. PO ONE (11:45)
[2019-11-02] MEDS ORDERED: IV 1/2 NORMAL SALINE 1,000 ML IV SCH (11:55)
--- NOTE | 2019-11-02 11:55 | PDOC ---
MODERATE SEDATION ASSESSMENT RISKS/ALTERNATIVES Risks/Alternatives Risks and alternatives of this type of sedation and procedure discussed with: RISK/ALTERNATIVES: Patient H & P ON CHART H & P H & P on chart and reviewed for co-morbid conditions and appropriate labs. H&P ON CHART: Yes STATUS PREG STATUS ASSESSED: N/A MEDS/ALLERGIES REVIEWED Meds/Allergies Reviewed Medications and Allergies including time and route of recently administered narcotics and sedatives. MEDS/ALLERGIES REVIEWED: Yes ASA RATING ASA RATING: III AIRWAY ASSESSMENT Airway Assessment Airway patency, oral function limitations, presence of caps, crowns, dentures, partials, and ability to extend neck assessed. AIRWAY ASSESSMENT: Yes MALLAMPATI SCORE MALLAMPATI SCORE: II PRE-SEDATION ASSESSMENT PRE-SEDATION ASSESSMENT: Yes RG SCHAFER MD November 02, 2019 11:55
[2019-11-02] MEDS ORDERED: NITROGLYCERIN SUBLINGUAL 0.4 MG BOTTLE OF 25. SL PRN (12:00)
[2019-11-02] MEDS ORDERED: 0.9 % SODIUM CHLORIDE 10 ML DISP.SYRIN. IV PRN (12:00)
[2019-11-02] MEDS ORDERED: ACETAMINOPHEN 325 MG TABLET. PO PRN (12:00)
[2019-11-02] MEDS ORDERED: fentaNYL PF VIAL 100 MCG/2 ML VIAL IV PRN (12:00)
--- NOTE | 2019-11-02 12:12 | CARD ---
MR#: [id number] Date of Study: 11/02/2019 Ordering Physician: RG SCHAFER, Referring Physician: RG SCHAFER, Tech: MANOLO KEE RTR APPROVED REPORT Technologist: MANOLO KEE RTR Nurse: Yaima Lyons R.N. Procedure(s) performed: 1. Left heart catheterization, selective coronary angiography via right bean sradial approach 2. Successful PCI/drug-eluting stent placement to the right coronary artery MODERATE SEDATION TIME: 84 MIN FLUORO TIME: 33.6 MIN DOSE: 249.6 GYCM2 CONTRAST: 198CC VISI INDICATION The indication(s) include : unstable angina . [facility] Clinical Frailty Scale [facility] Clinical Frailty Scale: Mildly Frail Heart Failure Heart Failure: No PROCEDURE NARRATIVE After explaining the risks, benefits and alternative options, informed consent was obtained from rosalba ent. Patient was brought to the cardiac Distributed Energy Systems Consultant and right wrist was prepped and draped in the usual fashion after confirming a positive modified Cruzito's test. Arterial access was obtained in the righ t radial artery and a 6 Canadian sheath was inserted. 6 Canadian Godfrey and 6 Canadian JL 3.5 catheters we re used to perform selective angiography of the right and left coronary arteries. LVEDP and transaor tic gradients were measured. The following findings were noted. FINDINGS 1. Hemodynamics: Left ventricular end-diastolic pressure of 18 mmHg. No pullback gradient across th e aortic valve. 2. Coronary angiography: a. The left main coronary artery arose from the left sinus of Valsalva, gave rise to the left anteri or descending and left circumflex arteries and showed 30% ostial segment stenosis. This was describe d in prior cardiac catheterization. b. The left anterior descending artery did not show any significant stenosis. c. The left circumflex artery did not show any significant stenosis. d. The right coronary artery was a dominant vessel arising from the right sinus of Valsalva that svetlana wed 90 to 95% in-stent restenosis involving the proximal segment and 40% in-stent restenosis involvin g the midsegment. INTERVENTION The right coronary artery was engaged with 6 Canadian AL 0.75 guide catheter after initial attempts to engage this with 6 Canadian JR4 guide catheter was unsuccessful. Attempts to advance a 0.014 inch Asah i pro-water guidewire were unsuccessful. A 0.014 inch PT guidewire was then used to cross the lesion . However, angiography showed loss of flow suggesting subintimal course of the wire. The lesion was hence recrossed with the same guidewire. The proximal and mid segments were then dilated with 2.5 x 12 mm trek balloon followed by 3.0 x 12 mm Euphora balloons. The proximal segment was treated with 3.5 x 15 mm resolute [place] drug-eluting stent. Follow-up angiography showed resolution of the stenosi s to 0% with CAT-3 distal flow. Patient tolerated the procedure well. Hemostasis was achieved usin g TR band. There were no immediate complications. CAT Flow CAT Flow (Pre-Intervention): CAT-2 CAT Flow (Post-Intervention): CAT-3 Conclusion 1. 90 to 95% in-stent restenosis involving the right coronary artery. The left main coronary artery showed 30% stenosis that was described in prior cardiac catheterization. 2. Successful PCI/drug-eluting stent placement to the right coronary artery. Recommendations 1. Aspirin 325 mg daily for 1 month followed by 81 mg daily 2. Plavix 75 mg daily 3. Cardiovascular risk factor modification Signed by : Rg Schafer, Electronically Approved : 11/02/2019 12:11:22
[2019-11-02] MEDS ORDERED: hydrALAZINE 20 MG/ML VIAL. IVP PRN (12:15)
[2019-11-02] MEDS: amLODIPine BESYLATE 5 MG TABLET PO SCH (12:27)
[2019-11-02] MEDS ORDERED: ATORVASTATIN CALCIUM 40 MG TABLET. PO SCH (21:00)
[2019-11-02] MEDS ORDERED: EZETIMIBE 10 MG TABLET. PO SCH (21:00)
[2019-11-02] MEDS: METOPROLOL TART IMMED RELEASE 25 MG TABLET. PO SCH (21:53)
[2019-11-03] MEDS: IV 1/2 NORMAL SALINE 1,000 ML IV SCH (00:20)
[2019-11-03 03:53] VITALS: BP 150/55
[2019-11-03] MEDS ORDERED: LEVOTHYROXINE 75 MCG TABLET PO SCH (06:00)
[2019-11-03 07:00] VITALS: BP 153/66
[2019-11-03] MEDS ORDERED: CLOPIDOGREL BISULFATE 75 MG TABLET PO SCH (08:00)
[2019-11-03] MEDS ORDERED: ASPIRIN ENTERIC COATED 325 MG TABLET.DR. PO SCH (08:00)
[2019-11-03] MEDS: amLODIPine BESYLATE 5 MG TABLET PO SCH (08:05)
[2019-11-03] MEDS: METOPROLOL TART IMMED RELEASE 25 MG TABLET. PO SCH (08:05)
[2019-11-03 10:39] VITALS: BP 147/57
--- NOTE | 2019-11-03 10:46 | PDOC3 ---
SUPA RAMSEY SEWING TECHNIQUES DEMONSTRATOR 11/03/19 1046: Discharge Summary Visit Information Date of Admission: November 02, 2019 Date of Discharge: November 03, 2019 Admitting Diagnosis: CAD, abnormal stress test Brief Hospital Course Allergies Allergies Coded Allergies Type Severity Reaction Last Updated Verified No Known Drug Allergies 09/13/16 No Vital Signs Vital Signs Date Time Temp Pulse Resp B/P (MAP) Pulse Ox O2 Delivery O2 Flow Rate FiO2 11/03/19 08:05 66 153/66 11/03/19 08:00 Room Air 11/03/19 07:00 98.3 16 97 98.3 11/02/19 11:51 2.0 Lab Results Laboratory Tests Test 11/02/19 08:34 White Blood Count 9.4 x10^3/uL (4.0-11.0) Red Blood Count 4.58 x10^6/uL (3.50-5.40) Hemoglobin 13.1 g/dL (12.0-15.5) Hematocrit 40.7 % (36.0-47.0) Mean Corpuscular Volume 89 fL (79-100) Mean Corpuscular Hemoglobin 29 pg (25-35) Mean Corpuscular Hemoglobin Concent 32 g/dL (31-37) Red Cell Distribution Width 14.7 % (11.5-14.5) Platelet Count 167 x10^3/uL (140-400) Prothrombin Time 11.7 SEC (11.7-14.0) Prothromb Time International Ratio 0.9 (0.8-1.1) Sodium Level 142 mmol/L (136-145) Potassium Level 4.0 mmol/L (3.5-5.1) Chloride Level 105 mmol/L (98-107) Carbon Dioxide Level 26 mmol/L (21-32) Anion Gap 11 (6-14) Blood Urea Nitrogen 24 mg/dL (7-20) Creatinine 1.1 mg/dL (0.6-1.0) Estimated GFR (Cockcroft-Gault) 58.1 Glucose Level 102 mg/dL (70-99) Calcium Level 9.0 mg/dL (8.5-10.1) Brief Hospital Course Ms. Buckley is a 79 yo female admitted for planned PCI. She has been noted with unstable angina and abnormal stress test as an outpt. She had 90 to 95% in-stent restenosis involving the right coronary artery. The left main coronary artery showed 30% stenosis that was described in prior cardiac catheterization. She had successful PCI/SOFYA to RCA. She tolerated the procedure well without immediate complications. BP is marginally high but otherwise VSS. No chest pain, SOA and ambulatory. AOx3, LSCTA, no arrhythmias overnight. Right radial arteriotomy site intact without hematoma or redness. She is to continue her routine medications at home with full dose ASA for 1 month then baby ASA thereafter in addition to plavix. Continue with secondary prevention measures. Follow up in office as scheduled. Cardiac rehab as discussed when facility is open. Discharge Information Condition at Discharge: Stable Follow Up: Weeks (01/27/2020 at 11AM) Disposition/Orders: D/C to Home Scheduled Aspirin (Aspirin) 81 Mg Tab.chew, 1 TAB PO DAILY for rx, #30 Ref 3 (Reported) Entered as Reported by: MABLE PEERZ on 11/02/19829 Last Taken: Unknown Dose on 11/02/19 Last Action: New Order on 11/02/19829 by MABLE PEREZ Aspirin (Aspirin Ec) 325 Mg Tablet.dr, 1 TAB PO DAILY for cad for 30 Days, #30 Ref 0 1 month of 325 mg of Aspirin then decrease to 81 mg thereafter Prescribed by: SUPA RAMSEY on 11/03/19 1051 Atorvastatin Calcium (Atorvastatin Calcium) 40 Mg Tablet, 40 MG PO HS for FOR CHOLESTEROL, #30 Ref 0 (Reported) Entered as Reported by: AKUA FANG on 09/08/18 1213 Last Action: Continued on 11/02/19 1159 by RG SCHAFER Clopidogrel Bisulfate (Clopidogrel) 75 Mg Tablet, 75 MG PO DAILYWBKFT for CAD for 30 Days, #30 Ref 5 Prescribed by: SUPA RAMSEY on 09/09/18 1042 Last Taken: Unknown Dose on 11/02/19 Last Action: Last Taken Edited on 11/02/19829 by MABLE PEREZ Cyanocobalamin (Vitamin B-12) (Vitamin B-12) 1,000 Mcg Tablet, 1 TAB PO DAILY, #30 Ref 2 (Reported) Entered as Reported by: XIOMY PHELPS on 09/24/17 1118 Last Action: Reviewed on 11/02/19829 by MABLE PEREZ Ezetimibe (Zetia) 10 Mg Tablet, 10 MG PO HS for cholesterol, (Reported) Entered as Reported by: ANTHONY XIONG on 09/15/14 1043 Last Action: Continued on 11/02/19 115 by RG SCHAFER Levothyroxine Sodium (Levothyroxine Sodium) 75 Mcg Tablet, 75 MCG PO DAILYAC for THYROID SUPPLEMENT, #30 Ref 0 (Reported) Entered as Reported by: AKUA FANG on 09/08/18 1213 Last Action: Continued on 11/02/19 115 by RG SCHAFER Metoprolol Tartrate (Metoprolol Tartrate) 25 Mg Tablet, 25 MG PO BID for BP, #60 Ref 0 (Reported) Entered as Reported by: YASMANI WALKER RN on 09/09/18 1131 Last Taken: Unknown Dose on 11/02/19 Last Action: Continued on 11/02/19 115 by RG SCHAFER Triamterene/Hydrochlorothiazid (Triamterene-Hctz 75-50 Mg Tab) 1 Each Tablet, 1 TAB PO QMWF for blood pressure/water pill, #30 Ref 5 (Reported) Entered as Reported by: TOVA CARDONA on 04/06/15 1632 Last Action: HELD on 11/02/191158 by RG SCHAFER Scheduled PRN Acetaminophen (Tylenol Extra Strength) 500 Mg Tablet, 500 MG PO PRN PRN for PAIN, (Reported) Entered as Reported by: AKUA FANG on 09/08/18 1213 Last Action: Reviewed on 11/02/19 0830 by MABLE PEREZ Patient Instructions Patient Instructions GENERAL INSTRUCTIONS: 1. Your dressing should be removed prior to leaving the hospital. 2. It is OK to shower the day after your procedure. 3. If you received stents, be sure to carry your stent information card with you in your wallet/purse at all times. 4. Call the office immediately at [phone] if you notice any fever or if there is redness, worsening tenderness/pain, increased bruising, or drainage from the puncture site. 5. Should you have bleeding from the site, lie down immediately & put pressure on the site. The pressure should be hard enough to stop the bleeding. Have the nearest person call 911. DO NOT try to drive to the ER with active bleeding. 6. If you notice a change in color, coolness to touch, or loss of feeling in the affected extremity, come to the emergency room. Please have someone drive you or call 911 if no one is available. DO NOT drive yourself. 7. If you normally take glucophage (metformin), please do not take this medic ine for 48 hours following your procedure. 8. DO NOT STOP TAKING YOUR PLAVIX OR ASPIRIN UNLESS IT IS CLEARED BY A REP RESENTATIVE OF YOUR HYDROLOGIC MODELER AT OUR OFFICE. 9. QUIT SMOKING: the [place] [employer], [place] [employer], & [place] [employer] have cessation resources available on their websites 10. Please have someone available to drive you home from the hospital as you may be limited by sedation medications given during the procedure. Radial Artery (Wrist) access: 1. No pushing, pulling, lifting, typing, or anything that requires repetitive use/movement of the affected wrist for 3 days following your procedure. 2. OK to drive the day following your procedure. (This is because of effects of sedating medications.) Call the office at [phone] for any questions or concerns. RG SCHAFER MD 11/04/19 0750: Discharge Summary Brief Hospital Course Brief Hospital Course Patient seen and examined 11/03/19. Agree with LANDSCAPE SUPERVISOR's assessment and plan. s/p PCI/SOFYA to in-stent restenosis involving proximal RCA, presently chest pain- free Telemetry did not show any significant arrhythmias Continue dual antiplatelet therapy Follow-up with our office as scheduled Discharge Information Scheduled Aspirin (Aspirin) 81 Mg Tab.chew, 1 TAB PO DAILY for rx, #30 Ref 3 (Reported) Entered as Reported by: MABLE PEREZ on 11/02/19 0830 Last Taken: Unknown Dose on 11/02/19 Last Action: New Order on 11/02/19829 by MABLE PEREZ Aspirin (Aspirin Ec) 325 Mg Tablet.dr, 1 TAB PO DAILY for cad for 30 Days, #30 Ref 0 1 month of 325 mg of Aspirin then decrease to 81 mg thereafter Prescribed by: SUPA RAMSEY on 11/03/19 1051 Atorvastatin Calcium (Atorvastatin Calcium) 40 Mg Tablet, 40 MG PO HS for FOR CHOLESTEROL, #30 Ref 0 (Reported) Entered as Reported by: AKUA FANG on 09/08/18 1213 Last Action: Continued on 11/02/19 1159 by RG SCHAFER Clopidogrel Bisulfate (Clopidogrel) 75 Mg Tablet, 75 MG PO DAILYWBKFT for CAD for 30 Days, #30 Ref 5 Prescribed by: SUPA RAMSEY on 09/09/18 1042 Last Taken: Unknown Dose on 11/02/19 Last Action: Last Taken Edited on 11/02/19829 by MABLE PEREZ Cyanocobalamin (Vitamin B-12) (Vitamin B-12) 1,000 Mcg Tablet, 1 TAB PO DAILY, #30 Ref 2 (Reported) Entered as Reported by: XIOMY PHELPS on 09/24/17 1118 Last Action: Reviewed on 11/02/19829 by MABLE PEREZ Ezetimibe (Zetia) 10 Mg Tablet, 10 MG PO HS for cholesterol, (Reported) Entered as Reported by: ANTHONY XIONG on 09/15/14 1043 Last Action: Continued on 11/02/19 1159 by RG SCHAFER Levothyroxine Sodium (Levothyroxine Sodium) 75 Mcg Tablet, 75 MCG PO DAILYAC for THYROID SUPPLEMENT, #30 Ref 0 (Reported) Entered as Reported by: AKUA FANG on 09/08/181212 Last Action: Continued on 11/02/19 115 by RG SCHAFER Metoprolol Tartrate (Metoprolol Tartrate) 25 Mg Tablet, 25 MG PO BID for BP, #60 Ref 0 (Reported) Entered as Reported by: YASMANI WALKER RN on 09/09/18 1131 Last Taken: Unknown Dose on 11/02/19 Last Action: Continued on 11/02/19 1159 by RG SCHAFER Triamterene/Hydrochlorothiazid (Triamterene-Hctz 75-50 Mg Tab) 1 Each Tablet, 1 TAB PO QMWF for blood pressure/water pill, #30 Ref 5 (Reported) Entered as Reported by: TOVA CARDONA on 04/06/15 1632 Last Action: HELD on 11/02/191158 by RG SCHAFER Scheduled PRN Acetaminophen (Tylenol Extra Strength) 500 Mg Tablet, 500 MG PO PRN PRN for PAIN, (Reported) Entered as Reported by: AKUA FANG on 09/08/18 1213 Last Action: Reviewed on 11/02/19829 by SUPA JEFF APRN November 03, 2019 10:46 RG SCHAFER MD November 04, 2019 07:50
[2019-11-03] MEDS ORDERED: ASPI325T11 PO (10:51)
== END 2019-11-03 12:00 | disposition home or self-care (01) ==
LOC: CCL 08:11 → 2 SOUTH 10:46 → INTOOBSV 10:46
PROVIDERS: ADMIT Internal Medicine Cardiovascular Disease; ATTEND Internal Medicine Cardiovascular Disease
DX: I25.110 Atherosclerotic heart disease of native coronary artery with unstable angina pectoris (principal); T82.855A Stenosis of coronary artery stent, initial encounter; I10 Essential (primary) hypertension; E78.5 Hyperlipidemia, unspecified; Z79.82 Long term (current) use of aspirin; Z79.899 Other long term (current) drug therapy; Z79.01 Long term (current) use of anticoagulants; Y83.1 Surgical operation with implant of artificial internal device as the cause of abnormal reaction of the patient, or of later complication, without mention of misadventure at the time of the procedure
CPT/HCPCS: 36415; 80048; 80061; 85027; 85610; 92928; 93458; 96374; 96375; C1725; C1769; C1874; C1887; C1892; G0378; G0379; J0360; J0583; J1644; J2250; J3010; J3490; Q9967; 99152; 99153

== ENCOUNTER → 2021-01-22 | Outpatient (CLI) | payer MEDICARE ==
[~2021-01-22] MED LIST changes: +ASPI-630 PO; +REGADENOSON 0.4 MG/5 ML DISP.SYRIN. IV ONE
--- NOTE | 2021-01-22 17:32 | CARD ---
MR#: [id number] Date of Study: 01/22/2021 Ordering Physician: RG SCHAFER, Referring Physician: RG SCHAFER Tech: Steff Zimmer [facility] APPROVED REPORT EXAM: Two-dimensional and M-mode echocardiogram with Doppler and color Doppler. Other Information Quality : AverageHR: 62bpm Rhythm : NSR INDICATION Chest Pain RISK FACTORS Hypertension Obesity 2D DIMENSIONS RVDd3.0 (2.9-3.5cm)Left Atrium(2D)3.9 (1.6-4.0cm) IVSd1.3 (0.7-1.1cm)Aortic Root(2D)3.1 (2.0-3.7cm) LVDd4.4 (3.9-5.9cm)LVOT Diameter2.2 (1.8-2.4cm) PWd1.0 (0.7-1.1cm)LVDs2.8 (2.5-4.0cm) FS (%) 36.2 %SV58.5 ml LVEF(%)66.1 (>50%) Aortic Valve AoV Peak Amanuel.156.0cm/sAoV VTI40.3cm AO Peak GR.9.7mmHgLVOT Peak Amanuel.106.9cm/s AO Mean GR.5mmHgAVA (VMAX)2.55cm2 Mitral Valve MV E Obmowdrj07.4cm/sMV DECEL KCSL855lf MV A Zwgmxfow627.8cm/sE/A Ratio0.7 Pulmonary Valve PV Peak Hldwflus194.0cm/s Tricuspid Valve TR P. Ufewbrul089ea/sTR Peak Gr.32mmHg LEFT VENTRICLE The left ventricle is normal size. There is borderline to mild concentric left ventricular hypertroph y. The left ventricular systolic function is normal and the ejection fraction is within normal range. Estimated ejection fraction 55-60%. There is normal LV segmental wall motion. Transmitral Doppler f low pattern is Grade I-abnormal relaxation pattern. RIGHT VENTRICLE The right ventricle is normal size. There is normal right ventricular wall thickness. The right ventr icular systolic function is normal. ATRIA The left atrium size is normal. The right atrium size is normal. The interatrial septum is intact wit h no evidence for an atrial septal defect or patent foramen ovale as noted on 2-D or Doppler imaging. AORTIC VALVE The aortic valve is normal in structure and function. Doppler and Color Flow revealed no significant aortic regurgitation. There is no significant aortic valvular stenosis. MITRAL VALVE The mitral valve is normal in structure and function. There is no evidence of mitral valve prolapse. There is no mitral valve stenosis. Doppler and Color-flow revealed trace mitral regurgitation. TRICUSPID VALVE The tricuspid valve is normal in structure and function. Doppler and Color Flow revealed trace tricus pid regurgitation. Estunated PAP 35 mmHg. There is no tricuspid valve stenosis. PULMONIC VALVE The pulmonary valve is normal in structure and function. Doppler and Color Flow revealed no pulmonic valvular regurgitation. GREAT VESSELS The aortic root is normal in size. The ascending aorta is normal in size. The IVC is normal in size a nd collapses >50% with inspiration. PERICARDIAL EFFUSION There is no evidence of significant pericardial effusion. Critical Notification Critical Value: No <Conclusion> The left ventricle is normal size. The left ventricular systolic function is normal and the ejection fraction is within normal range. Estimated ejection fraction 55-60%. There is borderline to mild concentric left ventricular hypertrophy. Doppler and Color Flow revealed no significant aortic regurgitation. There is no significant aortic valvular stenosis. Doppler and Color-flow revealed trace mitral regurgitation. Doppler and Color Flow revealed trace tricuspid regurgitation. Estunated PAP 35 mmHg. Signed by : Jet Forman MD Electronically Approved : 01/22/2021 17:31:53
--- NOTE | 2021-01-22 18:30 | RAD ---
MR#: [id number] Date of Study: 01/22/2021 Ordering Physician: RG SCHAFER, Referring Physician: CHAZ OVALLES Tech: GERARD Real ARRT (R) (N) APPROVED REPORT Test Type: Pharmacological Stress Nurse/Tech: Reny Grossman RN Test Indications: CAD Cardiac History: PTCA 2019, HTN Medications: See Electronic Medical Record Medical History: See Electronic Medical Record Resting ECG: SR Resting Heart Rate: 57 bpm Resting Blood Pressure: 199/67mmHg Pretest Chest Pain: None Nurse/Tech Notes Lungs CTA,S1S2 Consent: The procedure was explained to the patient in lay terms. Informed consent was witnessed. Raphael eout was entered into [employer]. History and Stress Test performed by RT Grisel Alvarez) (N) Pharm. Details Pharmacologic stress testing was performed using 0.4mg per 5ml of regadenoson given intravenously ove r 7-10 seconds. POST EXERCISE Reason for Termination: Infusion complete Max HR: 94 bpm Max Blood Pressure: 167/57mmHg Blood Pressure response to exercise: Normal blood pressure response during stress. Heart Rate response to exercise: Normal response Chest Pain: No. Arrhythmia: No. ST Change: No. INTERPRETATION Stress EKG Conclusion: The resting EKG shows a sinus rhythm with minimal nonspecific ST-T wave change s. The stress EKG shows no significant changes from baseline. No EKG evidence of stress-induced ischemia. Imaging Protocol IMAGE PROTOCOL: Rest Tc-99m/stress Tc-99m 1 day Rest: Stress: Viability: Radiopharm.Tc99m HhmypmmmtGr21i Sestamibi Ivbd69mXw 31mCi Img Date 01/22/2021 01/22/2021 Inj-Img Cpks18yfu. 60min. Rest Admin Site:IV - Right ForearmAdministrator:GERARD Real, VICKIE (R)(N) Stress Admin Site: IV - Right ForearmAdministrator: RT Grisel Alvarez)(N) STRESS DATA End Diast. Vol.83.0mlLVEDV index BSA44.0ml End Syst. Vol.29.0mlLVESV index BSA15.0ml Myocardial Wfdq664.0gEject. Lfttvwjm39.0% Stress Scores Regional WT0.00Summed WT1.00 Regional WM0.00Summed WM6.00 LV Perfusion The stress scans show no significant defects. The rest scans show no significant defects. Nuclear imaging shows no reversible ischemia or infarct. Wall Motion Left ventricular systolic function is normal with no regional wall motion abnormalities and an ejecti on fraction of 60%. LV Perf. Quant 17 Seg. SSS3.00 17 Seg. SRS0.00 17 Seg. SDS3.00 Stress Defect Extent (% LAD)0.00Rest Defect Extent (% LAD)0.00Rev. Defect Extent (% LAD)0.00 Stress Defect Extent (% LCX) 15.00Rest Defect Extent (% LCX)0.00Rev. Defect Extent (% LCX)3.80 Stress Defect Extent (% RCA)0.00Rest Defect Extent (% RCA)0.00Rev. Defect Extent (% RCA)0.00 Stress Defect Extent (% ELODIA)2.60Rest Defect Extent (% ELODIA)0.00Rev. Defect Extent (% ELODIA)0.70 Conclusion 1. No EKG evidence of stress-induced ischemia. 2. Nuclear imaging shows no reversible ischemia or infarct. 3. LV systolic function is normal with an ejection fraction of 60%. 4. Low risk Lexiscan nuclear stress test. Signed by : Jet Forman MD Electronically Approved : 01/22/2021 18:29:31
== END ==
LOC: NM 08:38
PROVIDERS: ATTEND Internal Medicine Cardiovascular Disease
DX: I51.7 Cardiomegaly (principal); I25.10 Atherosclerotic heart disease of native coronary artery without angina pectoris
CPT/HCPCS: 78452; 93017; 93306; A9500; J2785

== ENCOUNTER 2021-10-05 13:07 | Emergency (ER) | payer MEDICARE ==
[~2021-10-05] VITALS: Ht 157.5 cm; Wt 86.3 kg
[~2021-10-05 13:07] MED LIST changes: -CHOL4POW2 PO; +CHOL4POW6 PO; -ESTR2TAB PO; +ESTR2TAB3 PO; -REGADENOSON 0.4 MG/5 ML DISP.SYRIN. IV ONE
[2021-10-05 13:36] VITALS: BP 201/80
[2021-10-05] MEDS ORDERED: ACETAMINOPHEN 325 MG TABLET. PO ONE (15:00)
[2021-10-05] MEDS ORDERED: ORPHENADRINE CITRATE 60 MG/2 ML VIAL. IM ONE (15:00)
[2021-10-05] MEDS ORDERED: LIDOCAINE (700MG/PATCH) PATCH. TD ONE (15:00)
--- NOTE | 2021-10-05 16:02 | RAD ---
XR LT HIP (WITH OR WITHOUT PELVIS) 2 VIEWS History: Reason: low back pain 1 week s/p fall with sudden pain / Spl. Instructions: / History: Technique: AP view the pelvis and 2 additional views of the left hip Comparison: January 31, 2017 Findings: Bilateral hip arthroplasties. No dislocation. No acute fracture. Vascular calcifications. Lower lumba r spondylosis. Impression: 1. No acute osseous abnormality. 2. Bilateral hip arthroplasties. Electronically signed by: Curtis Tiwari DO (10/05/2021 3:34 PM) [id number]
--- NOTE | 2021-10-05 16:02 | RAD ---
XR LUMBAR SPINE 2-3V History: Reason: low back pain 1 week s/p fall with sudden pain / Spl. Instructions: / History: Technique: 3 views lumbar spine. Comparison: September 23, 2019 Findings: Normal vertebral body height and alignment. No acute fracture. Mild degenerative disc changes most pr ominent L4-5 and L5-S1. Facet arthropathy. Vascular calcifications. Surgical clips right upper quadra nt. Bilateral hip arthroplasties partially imaged. Impression: 1. No acute osseous abnormality. 2. Multilevel lumbar spondylosis. Electronically signed by: Curtis Tiwari DO (10/05/2021 3:35 PM) [id number]
--- NOTE | 2021-10-05 16:35 | PHYS DOC ---
Past Medical History Past Medical History: CAD (JORDY CASTILLO) Past Surgical History: Hip Replacement (bilateral) Additional Past Surgical Histo: CARDIAC STENTS (JORDY CASTILLO) Smoking Status: Current Every Day Smoker Alcohol Use: None Drug Use: None (JORDY CASTILLO) General Adult EDM: Chief Complaint: LOWER EXT PAIN HPI: HPI: Patient is an 81 year old female who presents with left-sided low back and lower extremity pain. She states that her pain today began without any inciting events. Patient reports that the pain is preventing her from walking upright. She states that last week, she had a mechanical fall, in which she experienced contusions to her right side, including her right wrist. Patient has history of low back pain. She has no other complaints at this time. (JORDY CASTILLO) Review of Systems: Review of Systems: Constitutional: Denies fever, chills or generalized weakness Eyes: Denies change in visual acuity, visual field deficits or discharge HENT: Denies ear pain, nasal congestion or sore throat Respiratory: Denies cough or shortness of breath Cardiovascular: Denies chest pain, palpitations or edema GI: Denies abdominal pain, nausea, vomiting, bloody stools or diarrhea : Denies dysuria or hematuria Musculoskeletal: See HPI Integument: Denies rash or other skin lesion Neurologic: Denies headache, focal weakness or sensory changes (JORDY CASTILLO) Heart Score: C/O Chest Pain: No (JORDY CASTILLO) Current Medications: Current Medications Medications (Trade) Dose Ordered Sig/Cecelia Start Time Stop Time Status Last Admin Dose Admin Acetaminophen (Tylenol) 650 mg 1X ONCE 10/05/21 15:00 10/05/21 16:01 DC Lidocaine (Lidoderm) 1 patch 1X ONCE 10/05/21 15:00 10/05/21 16:01 DC Orphenadrine Citrate (Norflex) 60 mg 1X ONCE 10/05/21 15:00 10/05/21 16:01 DC (JORDY CASTILLO) Allergies: Allergies: Allergies Coded Allergies Type Severity Reaction Last Updated Verified No Known Drug Allergies 10/05/21 No (JORDY CASTILLO) Physical Exam: PE: Constitutional: Well developed, well nourished, no acute distress, non-toxic appearance. HENT: Normocephalic, atraumatic, bilateral external ears normal, nose normal. Eyes: EOMI, conjunctiva normal, no discharge. Neck: Normal range of motion, no tenderness, no stridor. Skin: Warm, dry, no erythema, no rash. Back: No step-off, no bony tenderness, left-sided paraspinal spasm with overlying tenderness appreciated. Extremities: No tenderness, no cyanosis, no clubbing, ROM intact, no edema. Neurologic: Alert and oriented x4, normal motor function, normal sensory function, great toe dorsiflexion intact bilaterally, no focal deficits noted. (JORDY CASTILLO) Current Patient Data: Vital Signs: Vital Signs Date Time Temp Pulse Resp B/P (MAP) Pulse Ox O2 Delivery O2 Flow Rate FiO2 10/05/21 13:36 98.6 61 16 201/80 (120) 98 Room Air 98.6 (JORDY CASTILLO) Radiology/Procedures: Radiology/Procedures: PROCEDURE: LUMBAR SPINE 2-3V XR LUMBAR SPINE 2-3V History: Reason: low back pain 1 week s/p fall with sudden pain / Spl. Instructions: / History: Technique: 3 views lumbar spine. Comparison: September 23, 2019 Findings: Normal vertebral body height and alignment. No acute fracture. Mild degenerative disc changes most prominent L4-5 and L5-S1. Facet arthropathy. Vascular calcifications. Surgical clips right upper quadrant. Bilateral hip arthroplasties partially imaged. Impression: 1. No acute osseous abnormality. 2. Multilevel lumbar spondylosis. Electronically signed by: Curtis Tiwari DO (10/05/2021 3:35 PM) [id number] PROCEDURE: HIP LEFT 2V WITH PELVIS XR LT HIP (WITH OR WITHOUT PELVIS) 2 VIEWS History: Reason: low back pain 1 week s/p fall with sudden pain / Spl. Instructions: / History: Technique: AP view the pelvis and 2 additional views of the left hip Comparison: January 31, 2017 Findings: Bilateral hip arthroplasties. No dislocation. No acute fracture. Vascular calcifications. Lower lumbar spondylosis. Impression: 1. No acute osseous abnormality. 2. Bilateral hip arthroplasties. Electronically signed by: Curtis Tiwari DO (10/05/2021 3:34 PM) [id number] (JORDY CASTILLO) Course & Med Decision Making: Course & Med Decision Making Pertinent Labs and Imaging studies reviewed. (See chart for details) Symptoms do not reveal any acute abnormalities. Patient's pain is improved after Tylenol and Norflex administration here in the department. Patient advised that lidocaine patches are available [id number] as well. Patient request to be discharged home, as she feels better. Return precautions are provided. Patient understands and is agreeable to discharge plan. [employer] went on downtime during patient stay, discharge vitals were not available to be charted, however patient was hemodynamically stable on discharge. Patient was advised to follow with her primary care regarding elevated blood pressure. Paper prescription: Norflex 100 mg tablet dispense #10 take 1 tablet by mouth every 12 hours as needed for pain. (JORDY CASTILLO) Dragon Disclaimer: Dragon Disclaimer: This electronic medical record was generated, in whole or in part, using a voice recognition dictation system. (JORDY CASTILLO) Departure Departure Impression: Primary Impression: Acute exacerbation of chronic low back pain Additional Impression: Multiple contusions Disposition: 01 HOME / SELF CARE / HOMELESS Condition: IMPROVED Referrals: Zoe NATH MD (PCP) Patient Instructions: Back Exercises, [id number], Contusion, [id number] Additional Instructions: EMERGENCY DEPARTMENT GENERAL DISCHARGE INSTRUCTIONS Thank you for coming to [facility] Emergency Department (ED) today and trusting us with you care. We trust that you had a positive experience in our Emergency Department. If you wish to speak to the department management, you may call the director at . YOUR FOLLOW UP INSTRUCTIONS ARE FOLLOWS: 1. Follow up with your primary care doctor. If you do not have a primary doctor, please ask for a resource list of physicians or clinics that may be able to assist you with follow up care. 2. The emergency provider has interpreted your imaging studies, if any were ordered. The radiology foot specialist also reviewed them. If there is a change in the findings, you will be notified in 48 hours when at all possible. 3. If a lab test or culture has been done, your results will be reviewed and you will be notified if you need a change in treatment. 4. Follow instructions verbalized to you and refer to the printouts if needed. ADDITIONAL INSTRUCTIONS AND INFORMATION: 1. Your care today has been supervised by a physician who is specially trained in emergency care. Many problems require more than one evaluation for a complete diagnosis and treatment. We recommend that you schedule your follow up appointment as recommended to ensure complete treatment of you illness or injury. If you are unable to obtain follow up care and continue to have a problem, or if your condition worsens, we recommend that you return to the ED. 2. We are not able to safely determine your condition over the phone nor are we able to give sound medical advice over the phone. For these safety reasons, if you call for medical advice we will ask you to come to the ED for further evaluation. 3. If you have any questions regarding these discharge instructions please call the ED at . SAFETY INFORMATION: In the interest of safety, wellness, and injury prevention; we encourage you to wear your seat belt, if you smoke; quite smoking, and we encourage family to use a protective helmet for bicycling and other sporting events that present an increased risk for head injury. IF YOUR SYMPTOMS WORSEN OR NEW SYMPTOMS DEVELOP, OR YOU HAVE CONCERNS ABOUT YOUR CONDITION; OR IF YOUR CONDITION WORSENS WHILE YOU ARE WAITING FOR YOUR FOLLOW UP APPOINTMENT; EITHER CONTACT YOUR PRIMARY CARE DOCTOR, THE PHYSICIAN WHOSE NAME AND NUMBER YOU WERE GIVEN, OR RETURN TO THE ED IMMEDIATELY. Attending Signature Attending Signature I have reviewed the PA/REFERRAL CLERK's note and plan of care. I was available for consultation as needed during the patient's visit in the emergency department. I agree with the clinical impression, plan, and disposition. (ESTHER STONE DO) JORDY CASTILLO Oct 05, 2021 16:35 ESTHER STONE DO October 09, 2021 23:29
--- NOTE | 2021-10-05 16:57 | RAD ---
EXAM: PA, oblique and lateral views of the right wrist DATE: 10/05/2021 4:50 PM INDICATION: Right wrist pain. COMPARISON: No Prior FINDINGS: There is widening of the scapholunate interval measuring 6 mm. There is a suspected scaphoid waist fr acture with proximal pole sclerosis. Mild proximal migration of the capitate. Radioscaphoid joint spa ce effacement. Chondrocalcinosis. Vascular calcifications are seen. 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 Electronically signed by: Regis Hernández MD (10/05/2021 4:54 PM) [email or web address]
== END 2021-10-06 03:19 | disposition home or self-care (01) ==
LOC: ER 13:07
DX: S70.02XA Contusion of left hip, initial encounter (principal); S60.211A Contusion of right wrist, initial encounter; F17.200 Nicotine dependence, unspecified, uncomplicated; M54.50 Low back pain, unspecified; G89.29 Other chronic pain; I25.10 Atherosclerotic heart disease of native coronary artery without angina pectoris; Z95.5 Presence of coronary angioplasty implant and graft; W18.39XA Other fall on same level, initial encounter; Y93.89 Activity, other specified; Y92.89 Other specified places as the place of occurrence of the external cause; Y99.8 Other external cause status
CPT/HCPCS: 72100; 73110; 73502; 96372; 99284; J2360